=== PATIENT | male | born 1960 | race Caucasian/White ===

== ENCOUNTER 2016-05-19 05:27 | Inpatient (IN) | payer BC ==
[2016-05-18 08:54] VITALS: Ht 182.9 cm; Wt 82.2 kg
[~2016-05-19] VITALS: Ht 182.9 cm; Wt 82.2 kg
[2016-05-19] VITALS (26 sets, daily range): BP systolic 94–120; BP diastolic 56–77; PULSE 63–91; RESP 9–18
[2016-05-19] MEDS ORDERED: CEFAZOLIN 2 GM/50 ML (PMX) 50 ML IVPB SCH (05:30)
[2016-05-19] MEDS ORDERED: LACTATED RINGER'S 1,000 ML IV* SCH (05:30)
[2016-05-19] MEDS ORDERED: BUPR300T48 PO (06:37)
[2016-05-19] MEDS ORDERED: GABA300C16 PO (06:37)
[2016-05-19] MEDS ORDERED: CA CHLORIDE 10% 10 ML SYRINGE ONE (06:41)
[2016-05-19] MEDS ORDERED: BUPIVACAINE 0.25%/EPI (SDV) 30 ML INJ ONE (06:41)
[2016-05-19] MEDS ORDERED: THROMBIN 5000 UNIT VIAL ONE (06:41)
[2016-05-19] MEDS ORDERED: POLYMYXIN/BACITRACIN 1L IRRIG ONE (06:41)
[2016-05-19] MEDS ORDERED: SURGIFOAM POWDER 1 GM KIT ONE (06:41)
[2016-05-19] MEDS ORDERED: CEPASTAT LOZENGE MT PRN (07:00)
[2016-05-19] MEDS ORDERED: DIPHENHYDRAMINE 50 MG INJ IV PRN ×2 (07:00→09:30)
[2016-05-19] MEDS ORDERED: BISACODYL 10 MG SUPP PR PRN (07:00)
[2016-05-19] MEDS ORDERED: NALOXONE (0.4 MG/ML) INJ IV PRN (07:00)
[2016-05-19] MEDS ORDERED: ACETAMINOPHEN 325 MG TAB PO PRN (07:00)
[2016-05-19] MEDS ORDERED: ZOLPIDEM 5 MG TAB PO PRN (07:00)
[2016-05-19] MEDS ORDERED: NEOSTIGMINE 3 MG/3 ML SYRINGE ONE (07:00)
[2016-05-19] MEDS ORDERED: GLYCOPYRROLATE 1 MG INJ ONE (07:00)
[2016-05-19] MEDS ORDERED: HYDROCODONE/APAP (10/325) TAB PO PRN ×2 (07:00)
[2016-05-19] MEDS ORDERED: ONDANSETRON 4 MG INJ IV PRN ×2 (07:00→09:30)
[2016-05-19] MEDS ORDERED: AL HYDROX/MG HYDROX/SIMETH 30 ML CUP PO PRN (07:00)
[2016-05-19] MEDS ORDERED: HYDROmorphONE 0.2 MG/ML PCA IV SCH (07:00)
[2016-05-19] MEDS ORDERED: HYDROmorphONE 1 MG/ML SYG IV PRN (07:00)
[2016-05-19] MEDS: CEFAZOLIN 1 GM/50 ML (PMX) 50 ML IVPB SCH ×3 (07:00→23:35)
--- NOTE | 2016-05-19 07:00 | HPN ---
Date/Time of Note Date/Time of Note DATE: 05/19/16 TIME: 06:59 Interval H&P Admission Note Pt. seen H&P reviewed: No system changes FELICIA RASHID PA-C May 19, 2016 06:59
[2016-05-19] MEDS ORDERED: FENTAnyl 50 MCG/ML VIAL ONE ×2 (07:05→09:30)
[2016-05-19] MEDS ORDERED: SUCCINYLCHOLINE CHLORIDE 100 MG/5 ML SYG IV ONE (07:05)
[2016-05-19] MEDS ORDERED: PROPOFOL 20 ML ONE (07:05)
[2016-05-19] MEDS ORDERED: LIDOCAINE 2% (SDV) 5 ML INJ ONE (07:05)
[2016-05-19] MEDS ORDERED: MIDAZOLAM 1 MG/ML 2 ML INJ ONE (07:05)
[2016-05-19] MEDS ORDERED: ROCURONIUM 50 MG INJ ONE (07:05)
[2016-05-19] MEDS ORDERED: EPHEDrine SULFATE 50 MG/5 ML SYG ONE (07:20)
[2016-05-19] MEDS ORDERED: CEFAZOLIN 1 GM INJ ONE ×2 (07:51→10:15)
[2016-05-19] MEDS ORDERED: HEPARIN 1000 UNITS/ML 10 ML INJ ONE (07:51)
[2016-05-19] MEDS ORDERED: METOCLOPRAMIDE 10 MG INJ ONE (07:55)
[2016-05-19] MEDS ORDERED: ONDANSETRON 4 MG INJ ONE (07:55)
[2016-05-19] MEDS ORDERED: DEXAMETHASONE 4 MG/ML 1 ML INJ ONE (07:55)
[2016-05-19] MEDS: DOCUSATE SODIUM 100 MG CAP PO SCH ×2 (09:00→20:25)
[2016-05-19] MEDS ORDERED: MEPERIDINE 25 MG INJ IV PRN (09:30)
[2016-05-19] MEDS ORDERED: FENTAnyl 50 MCG/ML VIAL IV PRN (09:30)
[2016-05-19] MEDS ORDERED: HYDROmorphONE (0.2 MG/ML) 10ML SYG IV PRN (09:30)
[2016-05-19] MEDS ORDERED: PROCHLORPERAZINE 10 MG INJ IV PRN (09:30)
[2016-05-19] MEDS ORDERED: HYDROmorphONE 2 MG/ML SYG ONE (09:36)
--- NOTE | 2016-05-19 11:10 | RADRPT ---
PROCEDURE: Surgical localization for decompression laminectomy. CLINICAL INDICATION: L4-S1 DECOMPRESION RM 4 O.R. TECHNIQUE: Single lateral view of the lumbar spine for surgical localization. COMPARISON: None. FINDINGS: Localization needles are present between the distal portions of the L3 and L4 posterior spinous proc esses and mid S2 vertebral body levels. Vertebral bodies otherwise normal in height, density, and a lignment. Disk space narrowing at 5 - S1. Facet joint arthropathy of L3-L4 through L5-S1. IMPRESSION: Surgical localization markers at L3-L4 and mid S2 levels posteriorly. RPTAT:AAJJ Physician Nora Date Time Electronically viewed and signed by Physician Nora on 05/19/2016 11:09 MARIA G/
--- NOTE | 2016-05-19 11:11 | RADRPT ---
PROCEDURE: Surgical localization. CLINICAL INDICATION: L4-S1 DECOMPRESION RM 4 O.R. TECHNIQUE: Cross-table lateral view of the lumbar spine for surgical localization. COMPARISON: Localization lumbar spine x-ray 05/19/2016. FINDINGS: Surgical decompression instruments are noted at the level of the posterior L4-L5 and L5-S1 interspac es. No other interval change. IMPRESSION: Surgical instruments noted at the L4-L5 and L5-L1 posterior disk interspaces. RPTAT:AAJJ Physician Nora Date Time Electronically viewed and signed by Physician Nora on 05/19/2016 11:10 MARIA G/
[2016-05-19 12:26] LABS: ADD UMIC NO; URINE BILIRUBIN (Dip) NEGATIVE (NEGATIVE); URINE BLOOD (Dip) NEGATIVE (NEGATIVE); URINE COLOR LT. YELLOW (YELLOW); URINE GLUCOSE (Dip) NEGATIVE (NEGATIVE); URINE KETONES (Dip) NEGATIVE (NEGATIVE); URINE LEUKOCYTE ESTERASE (Dip) NEGATIVE (NEGATIVE); URINE NITRITE (Dip) NEGATIVE (NEGATIVE); URINE TOTAL PROTEIN (Dip) NEGATIVE (NEGATIVE); URINE UROBILINOGEN (Dip) 0.2 E.U./dL (0.1-1.0)
--- NOTE | 2016-05-19 12:54 | OPR ---
DATE OF OPERATION: 05/19/2016 PREOPERATIVE DIAGNOSES: 1. L4-5, L5-S1 stenosis with radiculopathy. 2. Extradural intraspinal synovial cyst x2. POSTOPERATIVE DIAGNOSES: 1. L4-5, L5-S1 stenosis with radiculopathy. 2. Extradural intraspinal synovial cyst x2. PROCEDURE PERFORMED: 1. Central decompressive laminectomy at L4-5 and L5-S1 for stenosis with decompression of L4, L5 and S1 nerve roots bilaterally. 2. Removal of extradural intraspinal cysts x2. 3. Intraoperative neural monitoring (2.5 hours). 4. Use of operative microscope. 5. Epidural injection via catheter. PRIMARY SURGEON: Gordon Henry MD. CUSTOMER SUCCESS SPECIALIST: Gudelia Diaz PA-C. NEED FOR INTERNAL SALESPERSON: During this spinal surgical procedure, my geriatric nurse assistant was used to retract and protect the spinal nerves and dural sac. My geriatric nurse assistant also employed the suction catheters to evacuate blood from the surgical field to improve visualization of the neural structures. The geriatric nurse assistant was medically necessary to facilitate the completion of the surgery in a safe and expeditious manner. State of [place] regulations, as well as hospital bylaws, preclude the use of non-licensed health care personnel, such as operating room technicians, to perform these functions. FINDINGS: At the start of the case, the left L5 amplitude was down 30%, right L4 amplitude down 30%, right L5 amplitude down 60%, right S1 amplitude down 40% . At the end of the case, nerve signals returned to normal. The patient had stenosis due to ligamentum and facet hypertrophy. Additionally, he had a large central extradural intraspinal cyst as well as one in the right lateral recess at L4-L5. The cavity of the cyst extended proximally and distally over both L4- L5 and L5-S1 levels adding to the stenosis. ESTIMATED BLOOD LOSS: 200 mL. DRAINS: One. SPECIMENS: Spinous processes of L4 and L5 as well cyst were sent to pathology. COMPLICATIONS OF PROCEDURES: None. ANESTHESIOLOGIST: Dr. Arguelles. TYPE OF ANESTHESIA: General. INDICATIONS FOR PROCEDURE: This is a 55-year-old gentleman with bilateral leg pain with right leg weakness. He had failed nonoperative measures, therefore, I recommended proceeding with the above-mentioned surgery. Preoperatively, we discussed the risks, benefits and alternatives. He understood and wished to proceed. DESCRIPTION OF PROCEDURE IN DETAIL: The patient was identified in the preoperative holding area, given Ancef antibiotic, taken to the operating room, where he was successfully placed under general anesthesia. Neural monitoring leads were placed. Sequential compressive devices were applied. Combs catheter was introduced. Neural monitoring was utilized during the procedure for 2.5 hours to include SSEP, MEP and EMG. This was performed by [employer]. Start time was 7:40 p.m., closure time was 10:10 p.m. The patient was placed on the operating table in prone position over a Walt frame. All bony prominences were padded. The back was then prepped and draped in usual sterile fashion. Spinal needles were placed, and a localizing film was obtained to confirm the correct levels. Once this was confirmed, I injected the skin, subcutaneous tissue and paraspinal musculature with 0.25% Marcaine and epinephrine. Incision was then made over the L4-5 and L5-S1 levels. Incision was taken down to dorsal fascia, which was incised with Bovie cautery. I then subperiosteally dissected the L4, L5 and S1 laminae. Kerrisons were placed, and repeat lateral films obtained to confirm the correct levels. Once this was confirmed, a central decompressive laminectomy was performed at the L4- 5 and L5-S1 levels. This is done with a Rickey rongeur, Leora rongeur and Kerrison punches. I decompressed the lateral recess and decompressed the L4, L5 and S1 nerve roots bilaterally for stenosis. Next the microscope was brought in. I identified a large dorsal central extradural intraspinal cyst as well one localized in the right lateral recess at L4-5. There was a cyst cavity that extended from the superior margin of L4 down to S1. This also extended into the lateral recess. Due to the size of this cyst cavity, this added complexity to the procedure and added at least 1 hour in order to tease this cavity off of the dura. I was able to remove the majority of the cyst in the right lateral recess. There was cavity remaining around the right L5 nerve root which I was able to tunnel through and open up in order to free up this nerve. The cyst that was dorsally located was quite adherent. I was able to remove the surrounding tissue and then I decided to just puncture the cyst and release the fluid as it was not causing any additional compression. Once this was done, I used bipolar cautery to burn the edges of the cyst cavity. Once this was done, all nerve signals returned to normal. I then irrigated the wound. Hemostasis was then achieved with bipolar cautery and Surgifoam. The wound was then irrigated. A Valsalva maneuver was performed, and there was no leak of CSF. Epidural catheter was passed through which I injected 100 mcg of fentanyl, and the catheter was removed. Anesthesiologist jamilah peripheral blood , which was spun down using the [employer] device, and I took the platelet-poor plasma, mixed it with thrombin and injected this over the dura for hemostatic purposes. I then placed a deep subfascial drain. I then closed the fascia with #1 Stratafix suture. I then closed subcutaneous tissue with a 2-0 Vicryl stitch. Microscope was taken off the field. A 4-0 Monocryl closure was then performed. Dermabond and sterile dressings were then applied. The patient was then awakened from anesthesia and taken to recovery room in stable condition. Lap, sponge and instrument counts were correct x2. There were no apparent complications during the procedure. The patient will be admitted to the [facility] for routine postoperative care to include pain control, neurovascular checks, antibiotics, and physical therapy. Dictated By: GORDON MIRANDA/JULIA Conf#: [id number] DID#: [id number] DENISE
[2016-05-19] MEDS: CARISOPRODOL 350 MG TAB PO PRN (13:15)
--- NOTE | 2016-05-19 13:50 | CONS ---
DATE OF ADMISSION: 05/19/2016 DATE OF CONSULTATION: TYPE OF CONSULTATION: Medical. Thank you, , for asking me to participate in medical management of this patient. REASON FOR CONSULTATION: To help manage the patient's depression and benign prostatic hypertrophy. HISTORY OF PRESENT ILLNESS: This 55-year-old man is now postop a lumbar spine surgery by Dr. Lili rubio. The patient underwent a central decompressive laminectomy at the L4-L5 and L5-S1 levels for st enosis with decompression of L4, L5 and S1 nerve roots. The patient is awake and alert. His pain i s controlled. He denies any chest pain or shortness of breath. The patient was having pain radiati ng from his back and down his right leg for several months. He denies any acute injury. MEDICATIONS: The patient is on the following medications: 1. Wellbutrin-XL 300 mg a day. 2. Gabapentin 300 mg 3 times a day. PAST MEDICAL HISTORY: Remarkable for depression, hypogonadism and benign prostatic hypertrophy. Th ere is a note on the chart from a preoperative evaluation by Dr. Gibson Quezada. PAST SURGICAL HISTORY: An AVM repair of the brain, appendectomy in the year 1999. FAMILY HISTORY: Father age 80 of coronary artery disease and alcoholism. Mother age 84 of alcohol and CHF. No family history of clotting or bleeding disorder. He has a sister who had a CABG, a brother with an ortho hip and back. SOCIAL HISTORY: The patient is a nonsmoker. He does use marijuana. ALLERGIES: HE HAS NO KNOWN DRUG ALLERGIES. PHYSICAL EXAMINATION: GENERAL: At this time reveals a well-developed man in no apparent distress. VITAL SIGNS: Blood pressure 117/61, pulse of 81, O2 sat of 100% on 2 liter nasal cannula. HEENT: Head normocephalic. EYES: Extraocular muscles intact. NOSE AND MOUTH: Normal. NECK: Supple. No neck vein distention. LUNGS: Clear to auscultation. HEART: Regular rhythm. No murmurs, gallops or rubs. ABDOMEN: Soft, nontender, no masses or megaly. EXTREMITIES: No peripheral edema. IMPRESSION: This patient is doing well after undergoing a lumbar spine surgery for spinal stenosis. He is awake and his pain is controlled. I will manage the patient's depression, hypogonadism, amy ign prostatic hypertrophy. PLAN: 1. Resume routine medications. 2. Check labs in the morning. 3. Postop lumbar spine surgery protocol. 4. I will follow the patient along with you. Dictated By: KAREEM WESTBROOK MD, ND/JULIA Conf#: [id number] DID#: [id number]
[2016-05-19] MEDS: D5W-0.45 NACL + KCL 20 MEQ 1,000 ML IV SCH ×2 (14:06→17:00)
[2016-05-19] MEDS: GABAPENTIN 300 MG CAP PO SCH (20:25)
[2016-05-20] MEDS: D5W-0.45 NACL + KCL 20 MEQ 1,000 ML IV SCH ×2 (04:22→13:00)
[2016-05-20 05:10] LABS: CREATININE 0.77 mg/dl (0.61-1.24)
[2016-05-20 05:11] LABS: CALCIUM 8.5 mg/dl (8.4-10.2); EOSINOPHILS % 0.2 % (0.0-7.0); HEMATOCRIT 35.7 % (42.0-52.0); HEMOGLOBIN 12.1 g/dl (14.0-18.0); LYMPHOCYTES # 1.3 10^3/ul (0.8-2.9); LYMPHOCYTES % 12.5 % (15.0-51.0); MAGNESIUM 1.8 mg/dl (1.7-2.5); MEAN CORPUSCULAR HEMOGLOBIN 29.2 pg (29.0-33.0); MEAN CORPUSCULAR HGB CONC 33.9 g/dl (32.0-37.0); MEAN CORPUSCULAR VOLUME 86.2 fl (82.0-101.0); MEAN PLATELET VOLUME 8.3 fl (7.4-10.4); MONOCYTE # 0.9 10^3/ul (0.3-0.9); MONOCYTES % 8.3 % (0.0-11.0); NEUTROPHIL # 8.4 10^3/ul (1.6-7.5); PLATELET COUNT 187 10^3/UL (140-440); RED BLOOD COUNT 4.14 10^6/ul (4.70-6.10); RED CELL DISTRIBUTION WIDTH 14.3 % (11.5-14.5); UNCORRECTED WBC 10.6 10^3/ul (4.8-10.8); WHITE BLOOD COUNT 10.6 10^3/ul (4.8-10.8)
[2016-05-20 05:39] LABS: CONDITION 1
[2016-05-20 06:38] VITALS: BP 114/74; PULSE 64; RESP 17
[2016-05-20] MEDS ORDERED: CEFAZOLIN 1 GM/50 ML (PMX) 50 ML IVPB SCH (07:30)
[2016-05-20 08:08] VITALS: BP 121/61; RESP 20
--- NOTE | 2016-05-20 08:50 | CONS ---
Date/Time of Note Date/Time of Note DATE: 05/20/16 TIME: 08:45 Assessment/Plan Assessment/Plan Chief Complaint/Hosp Course 1. he is 1 day post op a lumbar spine surgery, he is doing well 2. continue current medication and PT . Problems: Consultation Date/Type/Reason Admit Date/Time May 19, 2016 at 05:27 Initial Consult Date 24 HR Interval Summary Free Text/Dictation He is awake and responsive . Constitutional: improved, no complaints Exam/Review of Systems Vital Signs Vitals Vital Signs Date Time Temp Pulse Resp B/P Pulse Ox O2 Delivery O2 Flow Rate FiO2 05/20/16 08:08 98.3 76 20 121/61 96 05/20/16 06:38 Room Air 05/19/16 10:42 6.0 Intake and Output 05/19/16 05/19/16 05/20/16 15:00 23:00 07:00 Intake Total 1200 ml 950 ml 1930 ml Output Total 750 ml 1180 ml 1460 ml Balance 450 ml -230 ml 470 ml Exam Constitutional: alert, oriented, well developed Psych: nl mood/affect, no complaints Respiratory: clear to auscultation, normal air movement Cardiovascular: regular rate and rhythm Musculoskeletal: nl extremities to inspection Results Result Diagram: 05/20/16 0420 05/20/16 0420 Results 24 hrs Laboratory Tests Test 05/19/16 10:25 05/20/16 04:20 Urine Bilirubin NEGATIVE Urine Clarity CLEAR Urine Color LT. YELLOW Urine Glucose NEGATIVE Urine Hemoglobin NEGATIVE Urine Ketones NEGATIVE Urine Leukocyte Esterase NEGATIVE Urine Nitrite NEGATIVE Urine Specific [place] 1.020 Urine Total Protein NEGATIVE Urine Urobilinogen 0.2 E.U./dL Urine pH 7.0 Anion Gap 14 Basophils # 0.0 Basophils % 0.0 Blood Urea Nitrogen 12 Calcium Level 8.5 Carbon Dioxide Level 28 Chloride Level 103 Creatinine 0.77 Eosinophils # 0.0 Eosinophils % 0.2 Glucose Level 111 Hematocrit 35.7 L Hemoglobin 12.1 L Lymphocytes # 1.3 Lymphocytes % 12.5 L Magnesium Level 1.8 Mean Corpuscular Hemoglobin 29.2 Mean Corpuscular Hemoglobin Concent 33.9 Mean Corpuscular Volume 86.2 Mean Platelet Volume 8.3 Monocytes # 0.9 Monocytes % 8.3 Neutrophils # 8.4 H Neutrophils % 79.0 H Nucleated Red Blood Cells # 0.0 Nucleated Red Blood Cells % 0.0 Platelet Count 187 Potassium Level 4.0 Red Blood Count 4.14 L Red Cell Distribution Width 14.3 Sodium Level 141 White Blood Count 10.6 Medications Medications Current Medications Potassium Chloride/Dextrose/ Sod Cl (D5-1/2ns + KCl 20 Meq) 1,000 ml @ 100 mls/ hr Q10H IV Last administered on 05/20/16 04:22; Admin Dose 100 MLS/HR; Start at 07:00 Acetaminophen/ Hydrocodone Bitart (Crozet (10/325)) 1 tab Q4H PRN PO PAIN LEVEL 1-5; Start 05/19/16 at 07:00 Acetaminophen/ Hydrocodone Bitart (Crozet (10/325)) 2 tab Q4H PRN PO PAIN LEVEL 6-10; Start 05/19/16 at 07:00 Hydromorphone HCl (Dilaudid) 0.2 mg Q1H PRN IV BREAKTHROUGH PAIN; Start at 07:00 Ondansetron HCl (Zofran Inj) 4 mg Q6H PRN IV NAUSEA AND/OR VOMITING; Start at 07:00 Bisacodyl (Dulcolax Supp) 10 mg DAILY PRN MD CONSTIPATION; Start 05/19/16 at 07 :00 Docusate Sodium (Colace) 100 mg BID PO Last administered on 05/19/16 20:25; Admin Dose 100 MG; Start 05/19/16 at 09:00 Al Hydrox/Mg Hydrox/Simethicone (Mag-Al Plus) 15 ml Q6H PRN PO CONSTIPATION/ DYSPEPSIA; Start 05/19/16 at 07:00 Acetaminophen (Tylenol Tab) 650 mg Q4H PRN PO AGUILAR OR TEMP GREATER THAN 101.3F; Start 05/19/16 at 07:00 Carisoprodol (Soma) 350 mg TID PRN PO MUSCLE SPASMS; Start 05/19/16 at 07:00 Phenol (Cepastat Lozenge) 1 lozenge PRN PRN MT SORE THROAT Last administered on 05/19/16 16:20; Admin Dose 1 LOZENGE; Start 05/19/16 at 07:00 Diphenhydramine HCl (Benadryl) 25 mg Q6H PRN IV ITCHING; Start 05/19/16 at 07: 00 Naloxone HCl (Narcan) 0.2 mg Q2M PRN IV RR 8 BREATHS/MIN OR LESS; Start at 07:00 Hydromorphone HCl (Dilaudid PHARMACY ANCILLARY) PHARMACY ANCILLARY to be started in PACU Q4PCA IV Last administered on 05/19/16 10:47; Admin Dose 6 MG; Start 05/19/16 at 07:00 Miscellaneous Information 1. Hold PHARMACY ANCILLARY at 1,000... PHARMACY ANCILLARY IV ; Start 05/19/16 at 07: 00 Bupropion HCl (Wellbutrin Xl) 300 mg DAILY PO ; Start 05/20/16 at 09:00 Gabapentin (Neurontin) 300 mg TID PO Last administered on 05/19/16 20:25; Admin Dose 300 MG; Start 05/19/16 at 21:00 KAREEM WESTBROOK MD May 20, 2016 08:50
[2016-05-20] MEDS: DOCUSATE SODIUM 100 MG CAP PO SCH (08:57)
[2016-05-20] MEDS: GABAPENTIN 300 MG CAP PO SCH ×2 (08:57→14:59)
[2016-05-20] MEDS ORDERED: BUPROPION (XL) 150 MG TAB PO SCH (09:00)
--- NOTE | 2016-05-20 11:50 | PN ---
Date/Time of Note Date/Time of Note DATE: 05/20/16 TIME: 11:49 Assessment/Plan Lines/Catheters IV C[facility]ter Type (from [facility]): Peripheral IV Assessment/Plan Assessment/Plan will monitor drain output this afternoon if output slows, will consider D/C patient later today continue PT Subjective 24 Hr Interval Summary doing well, c/o LBP Exam/Review of Systems Vital Signs Vitals Vital Signs Date Time Temp Pulse Resp B/P Pulse Ox O2 Delivery O2 Flow Rate FiO2 05/20/16 08:08 98.3 76 20 121/61 96 05/20/16 06:38 Room Air 05/19/16 10:42 6.0 Intake and Output 05/19/16 05/19/16 05/20/16 15:00 23:00 07:00 Intake Total 1200 ml 950 ml 1930 ml Output Total 750 ml 1180 ml 1460 ml Balance 450 ml -230 ml 470 ml Exam Free Text/Dictation NVID drain intact dressing C/D/I drain output 140cc/24 hr, 60cc last shift Results Result Diagram: 05/20/16 0420 05/20/16 0420 FELICIA RASHID PA-C May 20, 2016 11:50
[2016-05-20] MEDS: CARISOPRODOL 350 MG TAB PO PRN (11:51)
--- NOTE | 2016-05-20 17:08 | OPR ---
DATE OF OPERATION: 05/20/2016 PREOPERATIVE DIAGNOSIS: Spinal stenosis. POSTOPERATIVE DIAGNOSIS: Spinal stenosis. OPERATION PERFORMED: Patient taken to the operating room on 05/19/2016 and underwent lumbar decompr ession. HOSPITAL COURSE: The patient admitted to [facility] after undergoing above procedure. Postop course was uncomplicated. By postoperative day 1, he was deemed stable for discharge with followup arranged with the undersigned. Dictated By: ROSELINE MIRANDA/JULIA Conf#: [id number] DID#: [id number]
== END 2016-05-20 16:00 | disposition home or self-care (01) | DRG 520 ==
LOC: REC 05:27 → MS1 11:39
PROVIDERS: ADMIT Specialist; ATTEND Specialist
PROC: 00BY0ZZ Excision of Lumbar Spinal Cord, Open Approach (ICD-10-PCS; 2016-05-19)
PROC: 01NB0ZZ Release Lumbar Nerve, Open Approach (ICD-10-PCS; principal; 2016-05-19 07:00)
DX: M48.06 Spinal stenosis, lumbar region (principal); F32.9 Major depressive disorder, single episode, unspecified; M71.38 Other bursal cyst, other site; N40.0 Benign prostatic hyperplasia without lower urinary tract symptoms; E78.5 Hyperlipidemia, unspecified; Z87.891 Personal history of nicotine dependence
CPT/HCPCS: 72020; 80048; 81003; 83735; 85025; 86999; 97116; 97163; 97530; J0330; J0690; J1100; J1170; J1644; J2250; J2405; J2710; J2765; J3010; J3480